=== PATIENT | female | born 1985 | race Caucasian/White ===

== ENCOUNTER 2018-12-15 18:13 | Emergency (ER) | payer MEDICAID ==
[~2018-12-15] VITALS: Ht 160 cm; Wt 65.8 kg
[2018-12-15 18:25] VITALS: BP 125/34
--- NOTE | 2018-12-15 18:51 | NUR ---
PT REPORT FROM [facility]OOKS.
== END 2018-12-15 19:35 | disposition home or self-care (01) ==
LOC: ED 19:29
DX: S93.521A Sprain of metatarsophalangeal joint of right great toe, initial encounter (principal); S93.511A Sprain of interphalangeal joint of right great toe, initial encounter; S96.811A Strain of other specified muscles and tendons at ankle and foot level, right foot, initial encounter; Z87.891 Personal history of nicotine dependence; W01.0XXA Fall on same level from slipping, tripping and stumbling without subsequent striking against object, initial encounter; Y93.01 Activity, walking, marching and hiking; Y92.89 Other specified places as the place of occurrence of the external cause; Y99.8 Other external cause status
CPT/HCPCS: 99283

== ENCOUNTER 2019-06-24 10:41 | Emergency (ER) | payer MEDICAID ==
[~2019-06-24] VITALS: Ht 160 cm; Wt 64.0 kg
[2019-06-24 10:56] VITALS: BP 133/68
--- NOTE | 2019-06-24 11:17 | NUR ---
PT TO RM FROM TRIAGE. ERMD IN TO EVAL PT. DISCUSSED POC, PT TO BE DISCHARGED TO FOLLOW UP WITH OB
--- NOTE | 2019-06-24 11:26 | NUR ---
Patient/Caregiver given discharge instructions and they have confirmed that they understand the instructions. Patient ambulatory with steady gait.
== END 2019-06-24 11:27 | disposition home or self-care (01) ==
LOC: ED 11:20
DX: O26.891 Other specified pregnancy related conditions, first trimester (principal); Z3A.01 Less than 8 weeks gestation of pregnancy; R06.02 Shortness of breath; R11.0 Nausea
CPT/HCPCS: 99283